=== PATIENT | female | born 1955 | race Caucasian/White ===

== ENCOUNTER 2019-03-24 22:51 | Emergency (ER) | payer MEDICARE ==
[~2019-03-24] VITALS: Ht 175.3 cm; Wt 72.6 kg
[2019-03-24 23:05] VITALS: BP 109/51
[2019-03-24] MEDS ORDERED: HYDROcodone/APAP 5/325MG 1 TAB TABLET PO ONE (23:30)
--- NOTE | 2019-03-24 23:30 | RAD ---
EXAM: WRIST 3V RIGHT. HISTORY: Trauma, fall. COMPARISON: None. FINDINGS: There is a comminuted intra-articular fracture of the distal radius. There is dorsal displacement of the main distal radial fragments and dorsal inclination of the distal articular surface by 30 degrees. There is a 4 mm articular surface gap along the main coronally oriented fracture line. An ulnar styloid fracture is also noted. 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 It is also moderate at the first metacarpophalangeal joint and mild to moderate elsewhere in the carpus. Soft tissue swelling is noted. IMPRESSION: 1. Dorsally angulated and displaced comminuted intra-articular fracture of the distal radius. 2. Ulnar styloid fracture. Electronically signed by: Ami Kelly MD (03/24/2019 11:27 PM) [facility] [place]
--- NOTE | 2019-03-25 00:19 | RAD ---
EXAM: WRIST 2V RIGHT. HISTORY: Fracture reduction. COMPARISON: Today's earlier radiograph. FINDINGS: There is improved alignment of the comminuted intra-articular distal radial fracture. Distal radial articular surface dorsal angulation persists and measures 20 degrees. An ulnar styloid fracture is noted. Refer to the prior study for description of osteoarthritis. IMPRESSION: 1. Improved alignment of a comminuted distal radial fracture. Persistent 20 degree dorsal inclination of the distal radial articular surface. 2. Ulnar styloid fracture. Electronically signed by: Ami Kelly MD (03/25/2019 12:16 AM) [facility]
--- NOTE | 2019-03-25 00:42 | PHYS DOC ---
Past History Past Medical History: Other Additional Past Medical Histor: OSTEOPOROSIS Past Surgical History: , Other Additional Past Surgical Histo: RIGHT LEG SX Alcohol Use: Occasionally Drug Use: None Adult General Chief Complaint Chief Complaint: WRIST PAIN HPI HPI Patient is a 64-year-old female presenting with right wrist pain she slipped at a wedding and fell down. She has osteoporosis takes spironolactone and takes chronic pain medication as well. No numbness or tingling pain is moderate to severe nonradiating right wrist worse with palpation Review of Systems Review of Systems Constitutional: Denies fever or chills [] Eyes: Denies change in visual acuity, redness, or eye pain [] HENT: Denies nasal congestion or sore throat [] Respiratory: Denies cough or shortness of breath [] Cardiovascular: No additional information not addressed in HPI [] GI: Denies abdominal pain, nausea, vomiting, bloody stools or diarrhea [] Neurologic: Denies headache, focal weakness or sensory changes [] Endocrine: Denies polyuria or polydipsia [] All other systems were reviewed and found to be within normal limits, except as documented in this note. Current Medications Current Medications Current Medications Medications (Trade) Dose Ordered Sig/Carroll Start Time Stop Time Status Last Admin Dose Admin Acetaminophen/ Hydrocodone Bitart (Lortab 5/325) 1 tab 1X ONCE 03/24/19 23:30 03/24/19 23:31 DC 03/24/19 23:22 1 TAB Allergies Allergies Allergies Coded Allergies Type Severity Reaction Last Updated Verified No Known Drug Allergies 03/24/19 No Physical Exam Physical Exam Constitutional: Well developed, well nourished, no acute distress, non-toxic appearance. [] HENT: Normocephalic, atraumatic, bilateral external ears normal, oropharynx moist, no oral exudates, nose normal. [] Eyes: PERRLA, EOMI, conjunctiva normal, no discharge. [] Neck: Normal range of motion, no tenderness, supple, no stridor. [] Pulmonary: Normal respiratory effort no increased work of breathing no obvious chest wall trauma Abdomen: Bowel sounds normal, soft, no tenderness, no masses, no pulsatile masses. [] Skin: Warm, dry, no erythema, no rash. [] Back: No tenderness, no CVA tenderness. [] Extremities tenderness to palpation with mild deformity at the right wrist sensation is intact distally radial pulse intact no tenderness at the elbow or shoulder Neurologic: Alert and oriented X 3, normal motor function, normal sensory function, no focal deficits noted. [] Psychologic: Affect normal, judgement normal, mood normal. [] Current Patient Data Vital Signs Vital Signs Date Time Temp Pulse Resp B/P (MAP) Pulse Ox O2 Delivery O2 Flow Rate FiO2 03/24/19 23:05 98.0 56 20 96 Room Air ANCING AND ACCIDENTLY TRIPPED AND FELL. Distress * Mild Temperature (Fahrenheit): * 98.0 degrees F (97.6-99.5) Patient Temperature * 98.0 degrees F (97.5-99.5) Temperature Source * Oral Blood Pressure Systolic * 109 mm Hg (100-140) Blood Pressure Diastolic * 51 mm Hg (60-100) L Blood Pressure Mean * 70 mm Hg Blood Pressure Location * Left Arm Blood Pressure Source * Automatic Cuff Pulse Rate * 56 beats per minute (60-90) L Pulse Assessment Method * Monitor Respiratory Rate * 20 breaths per minute (12-24) Oxygen Delivery Method EKG EKG [] Radiology/Procedures Radiology/Procedures [] Impressions: IMPRESSION: 1. Improved alignment of a comminuted distal radial fracture. Persistent 20 degree dorsal inclination of the distal radial articular surface. 2. Ulnar styloid fracture. Electronically signed by: Ami Kelly MD (03/25/2019 12:16 AM) [facility] [place] DICTATED AND SIGNED BY: JOHN KELLY MD Course & Med Decision Making Course & Med Decision Making Pertinent Labs and Imaging studies reviewed. (See chart for details) []Distal radius fracture: Procedure note verbal consent was obtained appropriate side was confirmed hematoma block with lidocaine was performed with a 6 mL also of 1% lidocaine under sterile conditions. Patient had good anesthesia with this. We then performed a sugar tong splint application with gentle manual reduction and traction manual traction of the distal radius. Repeat x-ray showed improved alignment. We did remove the rings on her finger as well and I did loosen the splint and checked it again and she had good capillary refill throughout. Follow-up with orthopedics within 3-5 days she is from [facility] and plans to call her insurance company on Tuesday to obtain appropriate follow-up within that timeframe close to her home Dragon Disclaimer Dragon Disclaimer This electronic medical record was generated, in whole or in part, using a voice recognition dictation system. Departure Departure: Impression: Primary Impression: Distal radius fracture Disposition: 01 HOME, SELF-CARE Condition: STABLE Patient Instructions: Wrist Fracture, [id number] Additional Instructions: SEE AN ORTHOPEDIST WITHIN 3-5 [address] YOU LIVE TAY MOBLEY MD Mar 25, 2019 00:42
== END 2019-03-25 00:23 | disposition home or self-care (01) ==
LOC: ER 22:51
DX: S52.501A Unspecified fracture of the lower end of right radius, initial encounter for closed fracture (principal); S52.611A Displaced fracture of right ulna styloid process, initial encounter for closed fracture; W01.0XXA Fall on same level from slipping, tripping and stumbling without subsequent striking against object, initial encounter; Y93.89 Activity, other specified; Y92.89 Other specified places as the place of occurrence of the external cause; Y99.8 Other external cause status
CPT/HCPCS: 25605; 29125; 73100; 73110; 99284